=== PATIENT | female | born 1975 | race Caucasian/White ===

== ENCOUNTER 2018-02-20 19:34 | Emergency (ER) | END 2018-02-20 20:57 | disposition home or self-care (01) ==

== ENCOUNTER 2018-03-17 19:03 | Emergency (ER) | payer BC ==
[~2018-03-17] VITALS: Wt 116.0 kg
[~2018-03-17 19:03] MED LIST: CLIN300C10 PO; HYDR-3980 PO; HYDR-4011 PO; IBUP-1542 PO; NAPR-985 PO; ORPH100T PO
[2018-03-17 19:06] VITALS: BP 145/93; PULSE 91; RESP 18
[2018-03-17] MEDS ORDERED: HYDROCODONE/APAP (10/325) TAB PO ONE (20:30)
[2018-03-17] MEDS ORDERED: IBUP800T48 PO (21:42)
[2018-03-17] MEDS ORDERED: HYDR-3980 PO (21:42)
--- NOTE | 2018-03-17 21:46 | ERD ---
ER Documentation Chief Complaint Chief Complaint bib self, cc: fall 5 hours ago, lower back pain, and left shoulder pain HPI Patient is a 42-year-old female who tripped over something on the ground and landed on her back and left shoulder and elbow and now has low back left shoulder and left elbow pain. She does not think she hit her head and she has no head or neck pain. No loss of consciousness. No vomiting. Pain is worse in her lower back and left elbow and is worse with movement. No numbness or tingling. ROS All systems reviewed and are negative except as per history of present illness. Medications Home Meds Active Scripts Hydrocodone/Acetaminophen (Madison 10-325 Tablet) 1 Each Tablet, 1 TAB PO Q6H PRN for PAIN, #20 TAB Prov:PEGGY CLAROS PA-C 03/17/18 Ibuprofen* (Motrin*) 800 Mg Tab, 800 MG PO Q6, #30 TAB Prov:PEGGY CLAROS PA-C 03/17/18 Hydrocodone/Acetaminophen (Madison 5-325 Tablet) 1 Each Tablet, 1 TAB PO Q6H PRN for PAIN, #7 TAB Prov:KAREN MEDEL PA-C 02/20/18 Naproxen* (Naprosyn*) 500 Mg Tablet, 500 MG PO BID PRN for PAIN AND/OR INFLAMMATION, #30 TAB Prov:KAREN MEDEL PA-C 02/20/18 Clindamycin Hcl* (Clindamycin Hcl*) 300 Mg Capsule, 300 MG PO TID for 10 Days, CAP Prov:KAREN MEDEL PA-C 02/20/18 Orphenadrine Citrate (Norflex) 100 Mg Tablet.sa, 100 MG PO BID for 3 Days, TAB.SA Prov:KASHIF JOHNSTON 02/27/16 Ibuprofen* (Ibuprofen*) 600 Mg Tablet, 600 MG PO Q6 for 3 Days, TAB Prov:KASHIF JOHNSTON 02/27/16 Hydrocodone/Acetaminophen (Madison 10-325 Tablet) 1 Each Tablet, 1 TAB PO Q6H PRN for PAIN, #20 TAB Prov:KASHIF JOHNSTON 02/27/16 Allergies Allergies: Uncoded Allergies: PENICILLIN (Allergy, Unknown, 02/20/18) PMhx/Soc History of Surgery: Yes (Thoracic fusion, r ankle reconstruction) Anesthesia Reaction: No Hx Neurological Disorder: No Hx Respiratory Disorders: No Hx Cardiac Disorders: No Hx Psychiatric Problems: No Hx Miscellaneous Medical Probl: No Hx Alcohol Use: Yes (Occasional) Hx Substance Use: Yes (Medical THC) Hx Tobacco Use: Yes Smoking Status: Current every day smoker FmHx Family History: No diabetes Physical Exam Vitals Vital Signs Date Temp Pulse Resp B/P (MAP) Pulse Ox O2 O2 Flow FiO2 Time Delivery Rate 03/17/18 98.3 91 18 145/93 100 19:06 (110) Physical Exam Const: No acute distress Head: Atraumatic Eyes: Normal Conjunctiva ENT: Normal External Ears, Nose and Mouth. Neck: Full range of motion. No meningismus. Resp: Clear to auscultation bilaterally Cardio: Regular rate and rhythm, no murmurs Upper Extremity -left Skin: No laceration, or evidence of external trauma Compartments: Soft Motor: Full range of motion in left shoulder, limited range of motion in left elbow secondary to pain Sensation: Intact shoulder/pinky/middle finger/thumb web space Bones: Tenderness to palpation throughout left elbow Snuffbox: Nontender Pulses/Perfusion: 2+ radial, Capillary refill < 2 seconds Back Exam: Compartments: Soft Motor: Normal flexion and extension of bilateral hip/knee/ankle/foot Sensation: Intact to light touch throughout Bones: No midline TTP Results 24 hrs Laboratory Tests Test 03/17/18 20:57 POC Beta HCG, Qualitative NEGATIVE Current Medications Medications Dose Sig/Ian Start Time Status Last (Trade) Ordered Route PRN Stop Time Admin Dose Reason Admin 1 tab ONCE ONCE 03/17/18 DC 03/17/18 Acetaminophen PO 20:30 20:15 / 03/17/18 Hydrocodone 20:31 Bitart (Madison (325)) Procedures/MDM 42-year-old female presents after mechanical fall. She has low back pain and left upper extremity pain. She does have a nondisplaced radial head fracture on the left side. The rest of her x-rays are unremarkable. She is neurovascular intact. She was given Madison for pain as well as prescription for Madison. She was given copies of her radiology report and CD with images as well as outpatient referral to orthopedics. She was placed in a long-arm posterior splint with sling. Patient counseled regarding my diagnostic impression and care plan. Prior to discharge all questions answered. Pt agrees with treatment plan and understands strict return precautions. Pt is instructed to follow up with primary care provider within 24-48 hours. Precautionary instructions provided including instructions to return to the ER if not improving or for any worsening or changing symptoms or concerns. Departure Diagnosis: Primary Impression: Shoulder pain Additional Impressions: Back pain Radial head fracture, closed Condition: Stable Patient Instructions: Radial Head Fracture Referrals: [facility] YOU HAVE RECEIVED A MEDICAL SCREENING EXAM AND THE RESULTS INDICATE THAT YOU DO NOT HAVE A CONDITION THAT REQUIRES URGENT TREATMENT IN THE EMERGENCY DEPARTMENT. FURTHER EVALUATION AND TREATMENT OF YOUR CONDITION CAN WAIT UNTIL YOU ARE SEEN IN YOUR DOCTORS OFFICE WITHIN THE NEXT 1-2 DAYS. IT IS YOUR RESPONSIBILITY TO MAKE AN APPOINTMENT FOR FOLOW-UP CARE. IF YOU HAVE A PRIMARY DOCTOR --you should call your primary doctor and schedule and appointment IF YOU DO NOT HAVE A PRIMARY DOCTOR YOU CAN CALL OUR PHYSICIAN REFERRAL HOTLINE AT . IF YOU CAN NOT AFFORD TO SEE A PHYSICIAN YOU CAN CHOSE FROM THE FOLLOWING [facility] INSTITUTIONS: [facility] [id number] [place], [place] [id number] [place] [address] [address] [place], [place] [id number] [place] [address] [address] [place] [address] [facility] Hours: Mon-Fri 9:00 AM - 5:00 PM Additional Instructions: SPECIALIST: YOU HAVE A MEDICAL CONDITION WHICH REQUIRES YOU TO SEE A SPECIALIST WITHIN THE NEXT 1-2 DAYS. PLEASE FOLLOW UP WITH YOUR PRIMARY PHYSICIAN FOR REFFERAL.IF YOU DO NOT HAVE A PRIMARY CARE PHYSICIAN AND/OR YOU CAN NOT AFFORD TO SEE A PHYSICIAN THE FOLLOWING RESOURCES HAVE BEEN SUPPLIED TO YOU. IT IS YOUR RESPONSIBILITY TO BE SEEN BY THE SPECIALIST PEGGY CLAROS PA-C Mar 17, 2018 21:46
== END 2018-03-17 22:10 | disposition home or self-care (01) ==
LOC: FTE 19:03
DX: S49.92XA Unspecified injury of left shoulder and upper arm, initial encounter (principal); F17.210 Nicotine dependence, cigarettes, uncomplicated; S52.125A Nondisplaced fracture of head of left radius, initial encounter for closed fracture; S39.92XA Unspecified injury of lower back, initial encounter; W01.0XXA Fall on same level from slipping, tripping and stumbling without subsequent striking against object, initial encounter; Y92.9 Unspecified place or not applicable
CPT/HCPCS: 72100; 73030; 73080; 81025; Z7610